=== PATIENT | female | born 1965 | race Caucasian/White ===

== ENCOUNTER 2020-03-26 18:12 | Emergency (ER) | payer OTHER, SELFPAY ==
[2020-03-26 18:13] VITALS: BP 142/87; PULSE 93; RESP 19; TEMP 37.1; O2SAT 99; BMI 35.4
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
[2020-03-26] MEDS: HYDROcodone Bitartrate/Apap 5/325 Tablet PO (19:16)
[2020-03-26] MEDS: Ibuprofen 600 MG Tablet PO (19:16)
[2020-03-26 19:19] VITALS: BP 135/80; PULSE 89; RESP 19; O2SAT 98
== END 2020-03-26 19:38 | disposition home or self-care (01) ==
LOC: ED 19:29
PROVIDERS: Emergency Provider Emergency Medicine; PCP Family Medicine
DX: M54.2 Cervicalgia (principal); V40.6XXA Car passenger injured in collision with pedestrian or animal in traffic accident, initial encounter; Y93.9 Activity, unspecified; Y92.9 Unspecified place or not applicable; Z98.1 Arthrodesis status
CPT/HCPCS: 99285